=== PATIENT | female | born 1960 | race Caucasian/White ===

== ENCOUNTER 2016-10-16 02:56 | Inpatient (IN) | payer OTHER ==
--- NOTE | ~2016-10-16 | DS ---
Unit #: [id number] #: [id number] Patient: JAYA LINK [id number] [facility] [address] [place] [address] [id number] I MR#: [id number] NAME: JAYA LINK. ROOM: 74 Age: 56 Sex: F Admission Date: 10/16/2016 : 1960 Discharge Date: 10/19/2016 Attending Physician: Armando Nicholas M.D. Primary Care Physician: Primary Care Physician No DISCHARGE SUMMARY REASON FOR ADMISSION The patient is a 56-year-old white female, admitted with history of alcohol and methamphetamine abuse. HOSPITAL COURSE The patient was admitted to the [facility] unit and placed on routine detoxification protocol for alcohol. Her participation within the therapeutic milieu left much to be desired, where her detox was an uneventful one. On 10/18/2016, the patient informed this physician that her boyfriend had undergone eye surgery in [place] and she wished to be discharged the following and it was so ordered. FINAL DIAGNOSES Methamphetamine use disorder; alcohol use disorder; mood disorder, unspecified. DISCHARGE MEDICATIONS The patient was discharged on the following medications; Prozac 40 mg daily for depression, Neurontin 600 mg q.8 hours for mood stabilization, Minipress 2 mg at h.s. for nightmares, Remeron 7.5 mg at h.s. for depression, Trileptal 300 mg b.i.d. for mood stabilization. DISCHARGE INSTRUCTIONS No dietary or physical restrictions were placed on the patient at the time of discharge. FOLLOWUP Followup will take place through the auspices of community mental health resources in the [facility]. PROGNOSIS The patient's prognosis is considered fair. Dictated by... Armando Nicholas M.D. CB/tani TD: 10/18/2016 22:05 JOB #: [id number] Unit #: [id number] #: [id number] Patient: JAYA LINK DISCHARGE SUMMARY X Armando Nicholas MD X DISCHARGE SUMMARY
--- NOTE | ~2016-10-16 | HP ---
Unit #: [id number] #: [id number] Patient: JAYA LINK [id number] [place] [address] [id number] MR#: [id number] NAME: JAYA LINK. ROOM: P174 Age: 56 Sex: F Admission Date: 10/16/2016 : 1960 Attending Physician: Armando Nicholas M.D. Admitting Physician: Armando Nicholas M.D. Primary Care Physician: Primary Care Physician No HISTORY AND PHYSICAL HISTORY OF PRESENT ILLNESS Jaya is a 56 year old admitted to [facility] because of her continued abuse of alcohol. PAST MEDICAL HISTORY 1. Long history of alcohol abuse 2. Diabetes mellitus 3. Hypothyroidism 4. History of poly illicit substance abuse PAST SURGICAL HISTORY 1. Cholecystectomy 2. Tubal ligation ALLERGIES Risperidone, Motrin, Nicotrol, Vistaril SOCIAL HISTORY Smokes one pack per day, drinks alcohol frequently, has a history of poly illicit substance abuse to include IV drugs. FAMILY HISTORY Medically noncontributory. REVIEW OF SYSTEMS CONSTITUTIONAL: No fever or chills. HEENT: Denies any sore throat, ear pain or runny nose. CARDIOVASCULAR: Denies chest pain, irregular heart rhythm or palpitations. CHEST: Denies shortness of breath or cough. No hemoptysis. GASTROINTESTINAL: Denies nausea, vomiting, diarrhea or chronic constipation. ENDOCRINE: Denies history of increased thirst or urination. No recent significant weight loss or gain. GENITOURINARY: Denies dysuria, frequency, or hematuria. SKIN: Denies any rashes. HEMATOLOGIC: Denies history of increased bleeding or bruising. MUSCULOSKELETAL: Denies any hot, swollen joints. No generalized muscle pain. NEUROLOGIC: Denies problems with vision or speech. No frequent, severe headaches. No numbness, tingling or weakness in any extremities. Denies loss of bladder or bowel control. Unit #: [id number] #: [id number] Patient: JAYA LINK CURRENT MEDICATIONS 1. Detox protocol 2. Prozac 40 mg daily 3. Synthroid 0.05 mg daily 4. Minipress 2 mg q.h.s. 5. Remeron 7.5 mg q.h.s. PHYSICAL EXAMINATION GENERAL: Alert, well-nourished, in no apparent distress. VITAL SIGNS: Blood pressure 128/80, heart rate 80, respirations 16, temperature 98.6. WEIGHT: 140 pounds. HEIGHT: 5'4". SKIN: Warm and dry without rash or lesion. HEENT: Normocephalic. TMs not viewed. Oral and nasal passages clear. Conjunctivae clear. Pupils equal, round and reactive to light and accommodation. Extraocular movements intact. NECK: Supple without lymphadenopathy or thyromegaly. HEART: Regular rate and rhythm without murmur. LUNGS: Clear. ABDOMEN: Soft, nontender. : Not done. EXTREMITIES: No evidence of cyanosis, clubbing or edema. Moves all extremities without focal deficit. NEUROLOGICAL: Grossly within normal limits. Cranial Nerves: II: Visual cao are intact. III, IV AND : Extraocular movements are intact. Pupils are equal, round and reactive to light. V: Facial sensation is grossly normal. VII: Facial movements and expression are normal. VIII: Auditory acuity grossly intact. IX, X: Uvula is midline. Phonation is normal. XI: Patient shrugs shoulders and turns head normally. XII: Tongue protrudes in the midline. Sensory and Motor Function: Sensory and motor sensation is grossly normal. Motor: moves all extremities well. Coordination: Gait is normal. Deep Tendon Reflexes: Intact. IMPRESSION Psychiatric admission RECOMMENDATIONS PSYCHIATRIC: Per psychiatrist. MEDICAL: I see no contraindications to participating in facility's activities. MEDICAL PROGNOSIS Good. MEDICAL CONDITION Stable. Dictated by... Thao Sargent P.A.-C. for Ranjana Edge M.D. Unit #: [id number] #: [id number] Patient: JAYA LINK Tea MERAZ/stephan TD: 10/17/2016 00:14 JOB #: [id number] HISTORY AND PHYSICAL X Thao Sargent HISTORY AND PHYSICAL
--- NOTE | ~2016-10-16 | PA ---
Unit #: [id number] #: [id number] Patient: JAYA LINK [id number] [place] [address] [id number] I MR#: [id number] NAME: JAYA LINK. ROOM: 74 Age: 56 Sex: F Admission Date: 10/16/2016 : 1960 Date of Assessment: 10/16/2016 Attending Physician: Armando Nicholas M.D. Admitting Physician: Armando Nicholas M.D. Primary Care Physician: Primary Care Physician No PSYCHIATRIC ASSESSMENT IDENTIFYING INFORMATION The patient is a 56-year-old white female who was admitted to the [address] [place] [address] with recurrent abuse of alcohol and methamphetamine. INFORMANT(S) Patient, reliability is fair. CHIEF COMPLAINT It is the same thing. HISTORY OF PRESENT ILLNESS The patient is a 56-year-old white female admitted to the [address] [place] [address] with a history of alcohol and methamphetamine abuse. She was last hospitalized at this facility under similar circumstances in march of 2016. The patient reports that she is presently having suicidal thoughts of plan to hang herself. She had been staying at [facility] but had reported to a facility in [place] complaining of chest pain then reported suicidal ideation. For a more complete history of present illness please refer to previously dictated notes. PAST PSYCHIATRIC HISTORY Reviewed and no changes. PAST MEDICAL HISTORY Reviewed and no changes. MEDICATIONS 1. Levothyroxine 2. Mirtazapine 3. Fluoxetine 4. Oxcarbazepine ALLERGIES Risperdal, Vistaril, Motrin, and Nicotrol FAMILY HISTORY Reviewed and no changes. SOCIAL HISTORY Reviewed and no changes. MENTAL STATUS EXAM At this time reveals the patient to be a disheveled white female appearing Unit #: [id number] #: [id number] Patient: JAYA LINK somewhat older than her stated age. She is in no apparent physical distress at the time of the examination. She is awake, alert, and oriented in all spheres. Her mood is dysphoric. Her affect constricted. Speech is generally relevant and coherent. There are no gross deficits to memory or cognition noted. Intelligence is judged to be in the average range based on fund of knowledge. The patient is cooperative throughout the interview. She is currently endorsing positive suicidal ideation. She denies homicidal ideation. She denies any psychotic symptoms. Her insight and judgement appear to be reasonably intact. ASSETS To be assessed. LIABILITIES Lack of resources. DIAGNOSTIC IMPRESSION 1. Alcohol use disorder. 2. Methamphetamine use disorder. 3. Posttraumatic stress disorder by history. 4. Mood disorder, unspecified. TREATMENT PLAN The patient remains hospitalized for safety and stabilization. We will restart periods of prescribed medications and watch for signs or symptoms of alcohol withdrawal. Suicidal precautions remain in place. ESTIMATED LENGTH OF STAY Three to five days with followup to take place through the auspices of community mental health resources. Dictated by... Armando Nicholas M.D. TONIO/stephan TD: 10/16/2016 22:23 JOB #: [id number] PSYCHIATRIC ASSESSMENT X Armando Nicholas MD X PSYCHIATRIC ASSESSMENT
[2016-10-16 09:45] LABS: BASOPHIL# 0.1 X10e3 (0-0.3); BASOPHIL% 1.1 % (0-2.5); EOSINOPHIL# 0.1 X10e3 (0-0.7); EOSINOPHIL% 0.8 % (0.0-7.0); HEMATOCRIT 38.3 % (35.0-45.0); HEMOGLOBIN 12.7 gm/dL (12.0-16.0); LYMPHOCYTE# 2.1 X10e3 (1.0-3.5); LYMPHOCYTE% 29.4 % (17.0-45.0); MEAN CELL VOLUME 87.1 FL (83-96); MEAN CORPUSCULAR HEMOGLOBIN 28.9 PG (28-34); MEAN CORPUSCULAR HGB CONC 33.1 g/dL (30-36); MEAN PLATELET VOLUME 9.8 FL (6.5-11.5); MONOCYTE# 0.3 X10e3 (0-1.0); MONOCYTE% 4.1 % (3.0-12.0); NEUTROPHIL# 4.7 X10e3 (1.5-7.1); NEUTROPHIL% 64.6 % (40-75); PLATELET COUNT 275 X10e3 (140-420); RED CELL DISTRIBUTION WIDTH 13.7 % (11.0-15.5); WHITE BLOOD COUNT 7.3 X10e3 (4.0-10.5)
[2016-10-16 09:59] LABS: DIFF IND NO
[2016-10-16 10:14] LABS: THYROID STIMULATING HORMONE 1.88 uIU/ml (0.34-5.60)
[2016-10-16 10:21] LABS: FREE THYROXIN (T4) 0.8 ng/dL (0.58-1.64)
[2016-10-16 10:35] LABS: ALBUMIN SERUM 3.5 g/dL (3.5-5.0); ALKALINE PHOSPHATASE 98 U/L (32-92); ALT (SGPT) 32 U/L (10-40); AST (SGOT) 25 U/L (10-42); BILIRUBIN,TOTAL 0.3 mg/dL (0.2-2.0); BLOOD UREA NITROGEN 13 mg/dL (9-23); BUN/CREATININE RATIO 21.66; CALCIUM SERUM 9.1 mg/dL (8.4-10.2); CARBON DIOXIDE 21 mmol/L (22-31); CHLORIDE 110 mmol/L (100-111); CREATININE SERUM 0.6 mg/dL (0.6-1.4); GLOM FILT RATE Estimated ABOVE60 mL/min (>60); GLUCOSE FASTING 79 mg/dL (70-110); PROTEIN TOTAL SERUM 6.9 g/dL (6.0-8.3); SODIUM 140 mmol/L (135-145)
[2016-10-18 12:34] LABS: URINE APPEARANCE CLEAR; URINE BILIRUBIN NEG (NEG); URINE BLOOD NEG (NEG); URINE COLOR DK YELLOW; URINE GLUCOSE NEG (NEG); URINE KETONE TRACE (NEG); URINE LEUKOCYTE ESTERASE NEG (NEG); URINE NITRATE NEG (NEG); URINE PROTEIN NEG (NEG); URINE SPECIFIC GRAVITY 1.028 (1.003-1.035); URINE UROBILINOGEN 0.2 MG/DL (NEG)
[2016-10-18 12:47] LABS: AMPHETAMINE NEG (NEG); BARBITURATES NEG (NEG); BENZODIAZEPINES POS (NEG); COCAINE NEG (NEG); MARIJUANA NEG (NEG); OPIATES NEG (NEG); TRICYCLIC ANTIDEPRESSANTS POS (NEG); U METHADONE NEG (NEG)
== END 2016-10-19 08:50 | disposition home or self-care (01) | DRG 897 ==
LOC: P1E 02:56
PROVIDERS: Specialist
PROC: HZ2ZZZZ Detoxification Services for Substance Abuse Treatment (ICD-10-PCS; principal; 2016-10-16)
DX: F10.20 Alcohol dependence, uncomplicated (principal); R45.851 Suicidal ideations; F15.10 Other stimulant abuse, uncomplicated; F43.10 Post-traumatic stress disorder, unspecified; F39 Unspecified mood [affective] disorder; E11.9 Type 2 diabetes mellitus without complications; E03.9 Hypothyroidism, unspecified; F17.200 Nicotine dependence, unspecified, uncomplicated
CPT/HCPCS: 80053; 80307; 81003; 84439; 84443; 84703; 85025; 86592